=== PATIENT | female | born 1985 | race African-American/Black ===

== ENCOUNTER → 2017-04-25 | Outpatient (CLI) | payer OTHER ==
[2015-06-16 15:20] VITALS: BP 134/99
[~2017-04-25] MED LIST: OMEP20CA9 PO; OXYC-323 PO
--- NOTE | 2017-04-25 12:12 | KCIC ---
Examination: Obstetric ultrasound greater than 14 weeks HISTORY: History of large for dates COMPARISON: None available FINDINGS: Single living intrauterine identified with heart rate of 150 bpm movement is seen. Cardiac activity seen Amniotic fluid is normal. Amniotic fluid index 16.9 cm. Given LMP 09/04/2016 Clinical age is 33 weeks and 2 days with estimated date of delivery 06/11/2017 by LMP. Ultrasound age is 33 weeks and 3 days with estimated date of delivery by ultrasound 06/10/2017 Estimated weight 2238 g +/- 331 g. Cephalic index 88.0 Head circumference to abdominal circumference ratio 1.0 Femur length to biparietal diameter 79.2 Femur length to head circumference 21.6 Femur length to abdominal circumference 21.7 Biparietal diameter 8.1 cm corresponding to 33 weeks and 2 days +/- 22 days Head circumference is 30.03 cm corresponding to 33 weeks and 2 days +/- 11 days Abdomen circumference is 29.89 cm corresponding to 33 weeks and 6 days +/- 21 days Femur length measures 6.50 cm corresponding to 33 weeks and 4 days +/- 21 days. Placenta is in the anterior wall. position is cephalic. The cervix is not well-visualized. IMPRESSION: Single living intrauterine with heart rate of 150 bpm. Ultrasound age is 33 weeks and 3 days with estimated date of delivery 06/10/2017. Electronically signed by: Ezekiel Ardon MD (04/25/2017 12:08 PM) [id number]
== END | disposition home or self-care (01) ==
LOC: KCIC US 10:47
PROVIDERS: ATTEND Obstetrics & Gynecology
DX: Z34.93 Encounter for supervision of normal pregnancy, unspecified, third trimester (principal); Z3A.33 33 weeks gestation of pregnancy
CPT/HCPCS: 76805; 76817

== ENCOUNTER → 2019-06-09 | Outpatient (CLI) | payer OTHER ==
[2015-06-16 15:20] VITALS: BP 134/99
[~2019-06-09] MED LIST changes: +OMEP20CA10 PO; -OMEP20CA9 PO; -OXYC-323 PO; +OXYC1TAB15 PO
--- NOTE | 2019-06-09 13:42 | KCIC ---
EXAM: Pelvic sonogram. HISTORY: Abnormal bleeding. TECHNIQUE: Transabdominal and transvaginal sonographic imaging of the pelvis was performed. COMPARISON: None. FINDINGS: The uterus measures 9.0 x 4.2 x 5.7 cm. The uterine parenchyma is diffusely heterogeneous. No discrete mass is seen. There is a trace amount of fluid within the endocervical canal. The endometrial stripe is thin, measuring 2.5 mm. The ovaries are normal in size and demonstrate normal blood flow. There are nabothian cysts within the cervix. There is no significant pelvic free fluid. IMPRESSION: 1. Diffusely heterogeneous uterine parenchyma, without a discrete lesion such as a fibroid. The uterus remains normal in size 2. Trace fluid within the endocervical canal, possibly due to blood products given reported vaginal bleeding. The endometrium is thin. 3. Nabothian cysts within the cervix. Electronically signed by: Nelli Valentin MD (06/09/2019 1:39 PM) [id number]
== END | disposition home or self-care (01) ==
LOC: KCIC US 08:59
PROVIDERS: ATTEND Family Medicine
DX: N88.8 Other specified noninflammatory disorders of cervix uteri (principal); N93.9 Abnormal uterine and vaginal bleeding, unspecified
CPT/HCPCS: 76830; 76856

== ENCOUNTER → 2020-06-28 | Outpatient (CLI) | payer OTHER ==
[2015-06-16 15:20] VITALS: BP 134/99
[~2020-06-28] MED LIST changes: -OMEP20CA10 PO; +OMEP20CA16 PO
[2020-06-28 10:27] LABS: BASO # 0.1 x10^3/uL (0.0-0.2); BASO % 1 % (0-3); EOS # 0.1 x10^3/uL (0.0-0.7); EOS % 1 % (0-3); HEMOGLOBIN 12.5 g/dL (12.0-15.5); LYMPH # 2.4 x10^3/uL (1.0-4.8); LYMPH % 40 % (24-48); MEAN CORPUSCULAR HEMOGLOBIN 28 pg (25-35); MEAN CORPUSCULAR HGB CONC 33 g/dL (31-37); MEAN CORPUSCULAR VOLUME 84 fL (79-100); MONO # 0.3 x10^3/uL (0.0-1.1); MONO % 6 % (0-9); NEUT # 3.1 x10^3/uL (1.8-7.7); NEUT % 52 % (31-73); PLATELET COUNT 315 x10^3/uL (140-400); RED BLOOD COUNT 4.56 x10^6/uL (3.50-5.40); RED CELL DISTRIBUTION WIDTH 14.5 % (11.5-14.5)
[2020-06-28 11:21] LABS: FREE T4 0.93 ng/dL (0.76-1.46); THYROID STIM HORMONE (TSH) 1.17 uIU/mL (0.358-3.74)
[2020-06-28 23:08] LABS: PROLACTIN 10.8 ng/mL (4.8-23.3); TESTOSTERONE TOTAL 84 ng/dL (8-48)
== END ==
LOC: LAB 09:30
PROVIDERS: ATTEND Obstetrics & Gynecology
DX: N92.0 Excessive and frequent menstruation with regular cycle (principal); N93.9 Abnormal uterine and vaginal bleeding, unspecified; D64.9 Anemia, unspecified
CPT/HCPCS: 36415; 82627; 82728; 84146; 84403; 84439; 84443; 85025

== ENCOUNTER → 2020-07-08 | Outpatient (CLI) | payer OTHER ==
[2015-06-16 15:20] VITALS: BP 134/99
--- NOTE | 2020-07-08 17:04 | RAD ---
INDICATION: Reason: Abnormal Uterine bleeding; Excessive Menses; Anemia / Spl. Instructions: / History: COMPARISON: June 09, 2019 TECHNIQUE: Grayscale and color ultrasound images uterus and adnexa. Transabdominal and transvaginal images obtained. Transvaginal images were needed to better visualize structures that were limited on transabdominal imaging. FINDINGS: Uterus: 90 x 52 x 35 mm. Endometrial Stripe: 8 mm. Right Ovary: 35 x 30 x 17 mm. Left Ovary: 43 x 23 x 22 mm. Vascular flow identified to bilateral ovaries. Mass within the myometrium along the posterior aspect of the uterus measuring 19 x 17 mm and anterior aspect of the uterus measuring 29 x 16 mm. IMPRESSION: * There is a couple of echogenic solid masses within the myometrium which can be seen with fibroids. * Nabothian cyst formation. Electronically signed by: Del James MD (07/08/2020 5:02 PM) [id number]
== END ==
LOC: US 15:53
PROVIDERS: ATTEND Obstetrics & Gynecology
DX: N92.0 Excessive and frequent menstruation with regular cycle (principal); N93.9 Abnormal uterine and vaginal bleeding, unspecified; D64.9 Anemia, unspecified; N88.8 Other specified noninflammatory disorders of cervix uteri
CPT/HCPCS: 76830; 76856